=== PATIENT | female | born 1995 | race Caucasian/White ===

== ENCOUNTER 2017-01-04 06:43 | Emergency (ER) | payer OTHER ==
[~2017-01-04] VITALS: Ht 167.6 cm; Wt 63.6 kg
[2017-01-04 06:46] VITALS: TEMP 98.2
[2017-01-04 08:12] VITALS: BP 109/73; PULSE 66
== END 2017-01-04 08:12 | disposition home or self-care (01) ==
LOC: COL.ER 06:43
DX: R07.9 Chest pain, unspecified (principal); F41.9 Anxiety disorder, unspecified; F32.9 Major depressive disorder, single episode, unspecified

== ENCOUNTER 2018-03-08 21:32 | Emergency (ER) | payer OTHER ==
[~2018-03-08] VITALS: Ht 167.6 cm; Wt 60.0 kg
[2018-03-08 21:38] VITALS: BP 144/89; TEMP 98.3
[2018-03-08] MEDS ORDERED: ADDERALL20 MG PO (22:12)
[2018-03-08 22:28] VITALS: PULSE 88
== END 2018-03-08 22:27 | disposition home or self-care (01) ==
LOC: COL.ER 21:32
DX: R00.2 Palpitations (principal); F90.9 Attention-deficit hyperactivity disorder, unspecified type